=== PATIENT | female | born 1985 | race Caucasian/White ===

== ENCOUNTER → 2025-04-07 | Emergency (ER) | payer OTHER ==
[~2025-04-07] VITALS: Ht 165.1 cm; Wt 74.8 kg
[2025-04-07 19:33] VITALS: BP 135/84; TEMP 98.5; O2SAT 98
== END | disposition home or self-care (01) ==
LOC: ER 20:27
DX: S01.111D Laceration without foreign body of right eyelid and periocular area, subsequent encounter (principal); W26.9XXD Contact with unspecified sharp object(s), subsequent encounter

== ENCOUNTER 2025-10-03 21:42 | Emergency (ER) | payer SELFPAY ==
[~2025-10-03] VITALS: Ht 165.1 cm; Wt 81.6 kg
[2025-10-03 22:36] VITALS: BP 137/79; TEMP 98.5; O2SAT 98
== END 2025-10-03 23:14 | disposition home or self-care (01) ==
LOC: ER 21:49
DX: L60.0 Ingrowing nail (principal)